=== PATIENT | female | born 2000 | race African-American/Black ===

== ENCOUNTER 2021-05-07 15:41 | Emergency (ER) | payer OTHER ==
[2021-05-07 16:07] VITALS: BP 115/78; PULSE 55; TEMP 98.1; BMI 20.2
[2021-05-07] MEDS ORDERED: IBUPROFEN 400 MG TABLET (FP) PO ONE ×2 (17:03→17:05)
== END 2021-05-07 17:12 | disposition home or self-care (01) ==
LOC: JERFT 15:41
DX: S56.919A Strain of unspecified muscles, fascia and tendons at forearm level, unspecified arm, initial encounter (principal); X50.0XXA Overexertion from strenuous movement or load, initial encounter
CPT/HCPCS: 99283-25

== ENCOUNTER 2023-10-11 07:04 | Emergency (ER) | payer OTHER ==
[2023-10-11 07:11] VITALS: BMI 20.4
[2023-10-11] MEDS ORDERED: METOCLOPRAMIDE HCL INJECTION 10 MG/2 ML VIAL ONE (07:51)
[2023-10-11] MEDS ORDERED: FAMOTIDINE 20 MG/50 ML IVPB 20 MG/50 ML MG IVPB ONE (07:51)
[2023-10-11] MEDS ORDERED: ACETAMINOPHEN INJECTION 100 ML IVPB ONE (08:04)
[2023-10-11] MEDS: ACETAMINOPHEN 1000 MG/100 ML BAG IVPB ONE (08:21)
[2023-10-11] MEDS: METOCLOPRAMIDE HCL INJECTION 10 MG/2 ML VIAL IVPUSH ONE (08:22)
[2023-10-11] MEDS: SODIUM CHLORIDE 1,000 ML IV STA (08:22)
[2023-10-11] MEDS: LACTATED RINGERS SOLUTION 1,000 ML/1,000 ML INFUS.BAG IV STA ×2 (08:22→09:22)
[2023-10-11] MEDS: FAMOTIDINE 20 MG/50 ML IVPB 20 MG/50 ML MG IVPB ONE (08:22)
[2023-10-11 08:54] LABS: BASO % 0.9 % (0-2.0); EOS % 0.3 % (0-4.5); HEMATOCRIT 37.5 % (32.4-45.2); HEMOGLOBIN 12.3 GM/dL (10.7-15.3); LYMPH % 18.8 % (8-40); MCH 27.6 pg (25.7-33.7); MCHC 32.8 g/dl (32.0-36.0); MEAN PLT VOLUME 9.1 fl (7.5-11.1); MONO % 3.9 % (3.8-10.2); NEUT % 76.1 % (42.8-82.8); PLATELET COUNT 232 10^3/uL (134-434); RBC 4.46 M/mm3 (3.60-5.2); RDW 14.5 % (11.6-15.6); WHITE BLOOD COUNT 9.5 K/mm3 (4.0-10.0)
[2023-10-11 09:08] LABS: POTASSIUM 3.9 mmol/L (3.5-5.1)
[2023-10-11 09:09] LABS: CALCIUM 8.9 mg/dL (8.5-10.1)
[2023-10-11 09:11] LABS: ALBUMIN 4.2 g/dl (3.4-5.0); BLOOD UREA NITROGEN 8.6 mg/dL (7-18)
[2023-10-11 09:13] LABS: CREATININE 0.7 mg/dL (0.55-1.3)
[2023-10-11 09:15] LABS: BILIRUBIN,TOTAL 0.5 mg/dL (0.2-1); TOT PROT 7.8 g/dl (6.4-8.2)
[2023-10-11 10:52] LABS: HCG,QUALITATIVE URINE Negative
[2023-10-11 10:58] VITALS: BP 118/68; PULSE 71; RESP 16; TEMP 97.7
[2023-10-11 11:20] LABS: PH,URINE 8.5 (5.0-8.0); URINE APPEARANCE CLEAR; URINE BILIRUBIN NEGATIVE (NEGATIVE); URINE COLOR YELLOW; URINE GLUCOSE (UA) NEGATIVE (NEGATIVE); URINE KETONE NEGATIVE (NEGATIVE); URINE LEUK ESTERASE NEGATIVE (NEGATIVE); URINE NITRITE NEGATIVE (NEGATIVE); URINE PROTEIN NEGATIVE (NEGATIVE); URINE UROBILINOGEN 0.2 mg/dL (0.2-1.0)
== END 2023-10-11 10:58 | disposition home or self-care (01) ==
LOC: JER 07:04
PROC: 3E033GC Introduction of Other Therapeutic Substance into Peripheral Vein, Percutaneous Approach (ICD-10-PCS; principal; 2023-10-11)
PROC: 3E033NZ Introduction of Analgesics, Hypnotics, Sedatives into Peripheral Vein, Percutaneous Approach (ICD-10-PCS; 2023-10-11)
PROC: 3E0337Z Introduction of Electrolytic and Water Balance Substance into Peripheral Vein, Percutaneous Approach (ICD-10-PCS; 2023-10-11)
PROC: 3E0337Z Introduction of Electrolytic and Water Balance Substance into Peripheral Vein, Percutaneous Approach (ICD-10-PCS; 2023-10-11)
DX: R11.2 Nausea with vomiting, unspecified (principal); K52.9 Noninfective gastroenteritis and colitis, unspecified; R19.7 Diarrhea, unspecified; R68.83 Chills (without fever); R10.84 Generalized abdominal pain; Z20.822 Contact with and (suspected) exposure to COVID-19
CPT/HCPCS: 0241U-QW; 36415; 80053; 81003; 84703; 85025; 87086; 96361; 96365; 96375; 99284-25; J0131